=== PATIENT | female | born 1955 | race Caucasian/White ===

== ENCOUNTER 2016-12-27 13:21 | Inpatient (IN) | payer OTHER ==
[~2016-12-27] VITALS: Ht 177.8 cm; Wt 78.0 kg
[2016-12-27 14:19] LABS: BASOPHIL % 0.6 % (0-2); CALCIUM 8.2 mg/dL (8.5-10.1); CARBON DIOXIDE 29.7 mmol/L (21-32); CHLORIDE SERUM 108 mmol/L (98-107); CREATININE SERUM 0.8 mg/dL (0.6-1.0); GFR1 > 60 mL/min; GLUCOSE SERUM 91 mg/dL (74-106); PLATELET COUNT 281 x10^3mcL (130-400); POTASSIUM SERUM 4.5 mmol/L (3.5-5.1); RED CELL DISTRIBUTION WIDTH 13.3 % (11.5-14.5); SODIUM SERUM 146 mmol/L (136-145)
[2016-12-27 14:23] LABS: ALBUMIN 3.1 g/dL (3.4-5.0); ALKALINE PHOSPHATASE 94 U/L (46-116); ALT/SGPT 28 U/L (14-59); AST/SGOT 30 U/L (15-37); BILIRUBIN TOTAL 0.3 mg/dL (0.20-1.00); TOTAL PROTEIN, SERUM 6.6 g/dL (6.4-8.2)
[2016-12-27 15:51] LABS: microscopic required? YES; urine erythrocyte TRACE (NEGATIVE)
[2016-12-27 16:12] LABS: AMPHETAMINE QUAL UR NONE DETECTED (NEG <=1000)
[2016-12-27 19:55] LABS: MAGNESIUM 2.2 mg/dL (1.8-2.4); PHOSPHOROUS 3.2 mg/dL (2.5-4.9)
[2016-12-27 19:57] LABS: CHOLESTEROL/HDL RATIO 1.6
[2016-12-27 20:04] LABS: FREE T4 0.87 ng/dL (0.76-1.46); T4(THYROXINE) 5.5 ug/dL (4.7-13.3)
[2016-12-27 20:06] LABS: T3 TOTAL 0.89 ng/mL
[2016-12-27 20:19] VITALS: BP 131/81
[2016-12-28 05:00] VITALS: BP 127/70
[2016-12-28 06:15] LABS: BASOPHIL % 1.2 % (0-2); PLATELET COUNT 199 x10^3mcL (130-400); RED CELL DISTRIBUTION WIDTH 12.9 % (11.5-14.5)
[2016-12-28 06:33] LABS: CARBON DIOXIDE 30.5 mmol/L (21-32); CHLORIDE SERUM 109 mmol/L (98-107); CREATININE SERUM 0.6 mg/dL (0.6-1.0); GFR1 > 60 mL/min; GLUCOSE SERUM 93 mg/dL (74-106); POTASSIUM SERUM 4.4 mmol/L (3.5-5.1); SODIUM SERUM 146 mmol/L (136-145)
[2016-12-28 08:25] VITALS: BP 129/81
[2016-12-28 14:12] VITALS: BP 132/75
[2016-12-28 17:15] VITALS: BP 119/67
[2016-12-28 21:17] VITALS: Ht 177.8 cm; Wt 78.0 kg
[2016-12-28 21:53] VITALS: BP 126/59
[2016-12-29 06:29] VITALS: BP 110/55
[2016-12-29 06:32] LABS: CALCIUM 8.4 mg/dL (8.5-10.1); CARBON DIOXIDE 29.9 mmol/L (21-32); CHLORIDE SERUM 108 mmol/L (98-107); CREATININE SERUM 0.6 mg/dL (0.6-1.0); GFR1 > 60 mL/min; GLUCOSE SERUM 91 mg/dL (74-106); POTASSIUM SERUM 4.9 mmol/L (3.5-5.1); SODIUM SERUM 147 mmol/L (136-145)
[2016-12-29 09:00] VITALS: BP 106/55
== END 2016-12-29 14:12 | disposition home or self-care (01) | DRG 775 ==
LOC: ED 13:21 → DU 16:23 → MU 12-29 00:21
PROVIDERS: Emergency Medicine; ADMIT Family Medicine
DX: F10.129 Alcohol abuse with intoxication, unspecified (principal); G92 Toxic encephalopathy; E87.0 Hyperosmolality and hypernatremia; R45.851 Suicidal ideations; T51.0X2A Toxic effect of ethanol, intentional self-harm, initial encounter; E44.1 Mild protein-calorie malnutrition; T42.4X2A Poisoning by benzodiazepines, intentional self-harm, initial encounter; T40.2X2A Poisoning by other opioids, intentional self-harm, initial encounter; N39.0 Urinary tract infection, site not specified; E06.3 Autoimmune thyroiditis; R73.03 Prediabetes; Y92.018 Other place in single-family (private) house as the place of occurrence of the external cause; Z98.84 Bariatric surgery status; F33.8 Other recurrent depressive disorders; Z83.3 Family history of diabetes mellitus; Z82.49 Family history of ischemic heart disease and other diseases of the circulatory system; Z90.49 Acquired absence of other specified parts of digestive tract; E83.51 Hypocalcemia; Z68.26 Body mass index [BMI] 26.0-26.9, adult; E66.3 Overweight
CPT/HCPCS: 83880; 84439; G0480; J0696; J7030